=== PATIENT | female | born 1960 | race Caucasian/White ===

== ENCOUNTER → 2017-03-04 | Outpatient (CLI) | payer OTHER ==
[~2017-03-04] MED LIST: ADVAIR 1001 DISK W/D PO; ALBUTEROL17 GM NEB; ATARAX PO; ATORVASTATIN CA10 MG PO; AZELASTINE137 MCG/0. INH; BACLOFEN10 MG PO; BENADRYL PO; CELEXA PO; CLARITIN10 MG PO; COLACE PO; COMBIVENT INH14.7 GM INH; DILAUDID; DIOVAN PO; DIOVAN160 MG PO; DOC-Q-LACE; DOC-Q-LACE PO; ESTRACE PO; FAMOTIDINE PO; FLAGYL PO; FLEXERIL PO; FLONASE 0.05% N16 G1 INH; FLONASE16 GM; GLIPIZIDE PO; HCTZ PO; HYDROCHLOROTHIA25 MG PO; IBUPROFEN PO; KCL PO; KEFLEX PO; KLONOPIN PO; KLOR-CON PO; LEVAQUIN PO; LORTAB 7.5-5001 TAB PO; MACROBID 100 M100 MG PO; METFORMIN HCL500 M1 PO; MICRO-K PO; MUCINEX DM1 TAB.SR . PO; MULTI VITAMIN1 EACH PO; NAPROSYN375 MG PO; NEURONTIN PO; NEURONTIN600 MG PO; NORCO 10-325 TA1 TAB PO; NORVASC PO; PAMELOR PO; PAMELOR25 M2 PO; PERCOCET10 PO; PERCOCET5/325 PO; PHENERGAN PO; PREDNISONE PO; PREMARIN0.625 MG PO; PRILOSEC PO; PRILOSEC20 MG PO; RANITIDINE HCL150 M1 PO; TALWIN NX TABLE1 TAB PO; TEGRETOL PO; TOPROL XL 50 MG50 MG PO; TYLENOL PO; VITAMIN D 22000 UNIT; VITAMIN D50000 UNIT INJ; ZITHROMAX PO; ZOFRAN ODT4 MG PO; ZOFRAN PO; ZOLOFT PO; ZOLOFT50 MG PO
--- NOTE | ~2017-03-04 | NM22 ---
[facility] A Service of [facility] RADIOLOGY TEXT RESULTS PATIENT: SID DENTON LOCATION: [facility] : 64 UNIT #: [id number] AGE: [address]: Sunday Abdi MD SEX: F ORDER DR: [id number] [facility] [address] [place], [place] [address] [id number] O MR#: [id number] Acc #: [id number] NAME: SID DENTON : 1960 SEX: F STUDY DATE/TIME: 03/04/2017 8:13 UNIT: [facility] ROOM: STUDY DESCRIPTION: MA Hepatobiliary W GB Pharm Attending Physician: Sunday Abdi M.D. Referring Physician: Sunday Abdi M.D. Ordering Physician: Sunday Abdi M.D. Primary Care Physician: Kiara Mazariegos M.D. MEDICAL IMAGING REPORT This report is preliminary unless electronic signature is present EXAM HIDA scan with Kinevac CCK, 03/04/2017 HISTORY Right upper quadrant abdominal pain, right flank pain and epigastric pain with abdominal bloating, epigastric distension. Early satiety, constipation and nausea for 3 weeks. FINDINGS The patient received an intravenous injection of 5.43 mCi of technetium 99m tagged Choletec for hepatobiliary imaging. One hour following the injection of the radiopharmaceutical the patient received an intravenous injection 2.4 mcg of Kinevac. There is homogeneous distribution of the radiotracer throughout the liver. Gallbladder activity was seen by 15 minutes postinjection of the radiopharmaceutical. Following Kinevac injection the gallbladder ejection fraction was 94.5% (normal is greater than 30%). IMPRESSION Normal HIDA scan with gallbladder ejection fraction of 94.5%. Dictated by... Sam Guerrier M.D. THIS IS AN ELECTRONICALLY VERIFIED REPORT Sam Guerrier M.D. at 03/04/2017 4:30 PM Geovani TD: 03/04/2017 11:08 JOB #: [id number] MEDICAL IMAGING REPORT Page 1 of 1 COPY
--- NOTE | ~2017-03-04 | US6 ---
[facility] A Service of [facility] RADIOLOGY TEXT RESULTS PATIENT: SID DENTON LOCATION: [facility] : 64 UNIT #: [id number] AGE: [address]: Sunday Abdi MD SEX: F ORDER DR: [id number] [facility] [address] [place], [place] [address] [id number] O MR#: [id number] Acc #: [id number] NAME: SID DENTON : 1960 SEX: F STUDY DATE/TIME: 03/04/2017 7:19 UNIT: [facility] ROOM: STUDY DESCRIPTION: US Abdominal Limited Attending Physician: Sunday Abdi M.D. Referring Physician: Sunday Abdi M.D. Ordering Physician: Sunday Abdi M.D. Primary Care Physician: Kiara Mazariegos M.D. MEDICAL IMAGING REPORT This report is preliminary unless electronic signature is present EXAM Right upper quadrant ultrasound, 03/04/2017 HISTORY Right upper quadrant abdominal pain for 2 weeks, diabetes and hypertension. FINDINGS The liver demonstrates an increase in echotexture with attenuation of the ultrasound beam characteristic of fatty infiltration. No cystic or solid mass lesions were seen in the liver. The intrahepatic bile ducts are not dilated. The gallbladder is normal with no evidence of cholelithiasis, wall thickening or pericholecystic fluid. The common duct is dilated to 1.3 cm. No obstructing mass or calculus is seen but the distal aspect of the common duct is obscured by bowel gas. If there is clinical concern for choledocholithiasis, consider correlation with MRCP. The pancreas and right kidney are normal. IMPRESSION 1. Fatty infiltration of the liver. 2. Normal gallbladder. 3. There is no intrahepatic biliary ductal dilatation but the common bile duct is dilated to 1.3 cm. No obstructing mass or calculus is seen but the distal aspect of the common duct is obscured by bowel gas. If there is clinical concern for choledocholithiasis, consider correlation with MRCP. STAT * RESULT Dictated by... Sam Guerrier M.D. THIS IS AN ELECTRONICALLY VERIFIED REPORT [facility] A Service of [facility] RADIOLOGY TEXT RESULTS PATIENT: SID DENTON LOCATION: [facility] : 64 UNIT #: [id number] AGE: [address]: Sunday Abdi MD SEX: F ORDER DR: Sam Guerrier M.D. at 03/04/2017 4:30 PM ALETA/yumiko TD: 03/04/2017 09:49 JOB #: [id number] MEDICAL IMAGING REPORT Page 1 of 1 COPY
== END | disposition home or self-care (01) ==
LOC: CGUS 06:49
DX: R10.9 Unspecified abdominal pain (principal); K76.0 Fatty (change of) liver, not elsewhere classified; K83.8 Other specified diseases of biliary tract
CPT/HCPCS: 76705; 78227; A9537; J2805

== ENCOUNTER → 2017-05-19 | Outpatient (CLI) | payer OTHER ==
--- NOTE | ~2017-05-19 | TH ---
Unit #: [id number] #: [id number] Patient: SID DENTON [id number] [address] [place], [place] [address] [id number] O MR#: [id number] NAME: SID DENTON. : 1960 SEX: F STUDY DATE/TIME: 05/20/2017 UNIT: [facility] ROOM: STUDY DESCRIPTION: Cardiolite imaging. Attending Physician: Mariano Flor M.D. Referring Physician: Mariano Flor M.D. Primary Care Physician: Kiara Mazariegos M.D. CARDIOLOGY REPORT EXAM Stress nuclear and ECG combined. INDICATION FOR STUDY Hypertension, dyslipidemia, diabetes, family history of congestive heart failure, current chest pain, abnormal resting ECG, unable to exercise adequately. SUMMARY The patient received Lexiscan intravenously while at rest, as well as technetium 99m Cardiolite 11.61 and 35.1 mCi at rest and stress respectively. Appropriate views were obtained. FINDINGS The study is adequate. The rest ECG showed no ST changes. With stress there were no ST changes. There were no dysrhythmias and there was no chest pain. There was increased shortness of breath with the Lexiscan. Heart rate increased from 54 to 77, and blood pressure decreased from 170/80 to 156/85. Perfusion images demonstrate moderate decrease in perfusion in the anteroseptum, likely related to breast attenuation artifact both at rest and stress. There is a slight change between rest and stress. This appears to be related to breast attenuation artifact. Planar images demonstrate no significant patient motion either at rest or stress. There is no significant lung uptake or right ventricular enlargement, although the right ventricle is poorly seen. There appears to be mild left ventricular enlargement. End-diastolic volume is 128 ml, ejection fraction 58%, with mild hypokinesis in the anteroseptal wall. IMPRESSION 1. Changes noted in the anteroseptal wall likely reflect breast attenuation artifact, based on the planar images. However, a small nontransmural infarction with very mild isac-infarct ischemia in the anteroseptal wall cannot be excluded. Would consider echo evaluation for another assessment of the anteroseptal wall. 2. Mildly enlarged ventricle. 3. Normal left ventricular function. Dictated by... Unit #: [id number] #: [id number] Patient: SID DENTON M.D. PJR/gz TD: 05/20/2017 13:48 JOB #: [id number] CARDIOLOGY REPORT Page 1 of 1 X Mariano Flor MD CARDIOLOGY REPORT
--- NOTE | ~2017-05-19 | ST ---
Unit #: [id number] #: [id number] Patient: SID DENTON [id number] [address] [address] [id number] O MR#: [id number] NAME: SID DENTON : 1960 SEX: F STUDY DATE/TIME: 05/20/2017 UNIT: CN ROOM: STUDY DESCRIPTION: Cardiac stress test. Attending Physician: Mariano Flor M.D. Referring Physician: Mariano Flor M.D. Primary Care Physician: Kiara Mazariegos M.D. CARDIOLOGY REPORT EXAM Cardiac stress test. Results included in Cardiolite imaging report. Dictated by... Mariano Flor M.D. PJR/gz TD: 05/20/2017 13:58 JOB #: [id number] CARDIOLOGY REPORT Page 1 of 1 X Mariano Flor MD CARDIOLOGY REPORT
== END | disposition home or self-care (01) ==
LOC: CNUC 08:19
DX: R07.89 Other chest pain (principal); I51.7 Cardiomegaly
CPT/HCPCS: 78452; 93017; 93306; A9500; J2785